=== PATIENT | female | born 1990 | race Caucasian/White ===

== ENCOUNTER 2016-07-02 20:57 | Emergency (ER) | payer OTHER ==
[2016-07-02 21:04] VITALS: BP 109/78; PULSE 97; TEMP 98.5; BMI 24.2
--- NOTE | 2016-07-02 21:20 | PDOC ---
History of Present Illness - General History Source: Patient Exam Limitations: No Limitations - History of Present Illness Initial Comments: 07/02/16 21:35 The patient is a 25 year old female () with no PMH presents to the ED today complaining of LLQ pain for 2 days. The patient reports she recently took a home test that was positive. She denies vaginal bleeding/ discharge. She is scheduled for appointment next week. However, she developed LLQ pain in the last 2 days. She states googling her symptoms and became concerned for ectopic . Patient denies nausea, vomiting, diarrhea. Denies frequency, urgency, dysuria, hematuria. She denies loss of appetite. Denies: fever, chills, coughing, SOB and chest pain. Allergies: NKDA <Anuradha Armenta - Last Filed: 07/02/16 21:35> - General History Source: Patient <Saul Harris - Last Filed: 07/02/16 23:32> - General Chief Complaint: Pain, Acute Stated Complaint: PREG PAIN Time Seen by Provider: 07/02/16 21:17 Past History <ConniebradAnuradha - Last Filed: 07/02/16 21:35> - Past Medical History Asthma: Yes - Psycho/Social/Smoking Cessation Hx Suicidal Ideation: No Smoking Status: No Smoking History: Never smoked Number of Cigarettes Smoked Daily: 0 <JimEusebia lazoan - Last Filed: 07/02/16 23:32> - Past Medical History Allergies/Adverse Reactions: Allergies Allergy/AdvReac Type Severity Reaction Status Date / Time No Known Allergies Allergy Verified 07/02/16 21:01 Home Medications: Ambulatory Orders NK [No Known Home Medication] 07/02/16 Review of Systems - Review of Systems Able to Perform ROS?: Yes Comments:: 07/02/16 21:35 CONSTITUTIONAL: Absent: fever, no chills, no fatigue EYES: Absent: visual changes ENT: Absent: ear pain, no sore throat CARDIOVASCULAR: Absent: chest pain, no palpitations RESPIRATORY: Absent: cough, no SOB GI: +LLQ pain. Absent: no nausea, no vomiting, no constipation, no diarrhea GENITOURINARY: Absent: dysuria, no frequency, no hematuria MUSKULOSKELETAL: Absent: back pain, no arthralgia, no myalgia SKIN: Absent: rash NEURO: Absent: headache <Anuradha Armenta - Last Filed: 07/02/16 21:35> *Physical Exam - Vital Signs Last Vital Signs Temp Pulse Resp BP Pulse Ox 98.5 F 97 H 18 109/78 99 07/02/16 21:02 07/02/16 21:02 07/02/16 21:02 07/02/16 21:02 07/02/16 21:02 - Physical Exam Comments: 07/02/16 21:36 GENERAL: Well-appearing, well-nourished. No apparent distress. HEENT: Normocephalic, atraumatic. PERRL, EOM intact. CARDIOVASCULAR: Normal S1, S2. Regular rate and rhythm. PULMONARY: Clear to auscultation bilaterally. ABDOMEN: Soft, non-distended, mild LLQ tenderness. EXTREMITIES: Normal ROM in all four extremities. No gross deformities. SKIN: Warm, dry. No rash NEUROLOGICAL: No focal neurological deficits. <Anuradha Armenta - Last Filed: 07/02/16 21:35> - Vital Signs Last Vital Signs Temp Pulse Resp BP Pulse Ox 98.5 F 97 H 18 109/78 99 07/02/16 21:02 07/02/16 21:02 07/02/16 21:02 07/02/16 21:02 07/02/16 21:02 <Saul Harris - Last Filed: 07/02/16 23:32> ED Treatment Course - LABORATORY CBC & Chemistry Diagram: 07/02/16 21:30 07/02/16 21:30 <Saul Harris - Last Filed: 07/02/16 23:32> Medical Decision Making - Medical Decision Making 07/02/16 23:32 Dr. Harris: The scribe's documentation has been prepared under my direction and personally reviewed by me in its entirery. I confirm that the note above accurately reflects all work, treatment, procedures, and medical decision making performed by me. <Saul Harris - Last Filed: 07/02/16 23:32> *DC/Admit/Observation/Transfer - Attestations Scribe Attestion: 07/02/16 21:36 Documentation prepared by Anuradha Armenta, acting as emergency medical technician basic for Saul Harris MD/DO. <GeovanyAnuradha - Last Filed: 07/02/16 21:35> - Discharge Dispostion Admit: No <Saul Harris - Last Filed: 07/02/16 23:32> Diagnosis at time of Disposition: 4 weeks gestation of - Discharge Dispostion Disposition: HOME Condition at time of disposition: Stable - Referrals Referrals: Jhonny Rodriguez MD [Staff Physician] - - Patient Instructions Printed Discharge Instructions: Managing Symptoms of
[2016-07-02 21:44] LABS: EOSINOPHIL 1.7 % (0-4.5); MCH 31.3 pg (25.7-33.7); MCHC 33.2 g/dl (32.0-36.0); MEAN CELL VOLUME 94.4 fl (80-96); MEAN PLT VOLUME 7.6 fl (7.5-11.1); NEUTROPHILS 62.1 % (42.8-82.8); PLATELET COUNT 359 K/MM3 (134-434); RDW 12.4 % (11.6-15.6); WHITE BLOOD COUNT 10.4 K/mm3 (4.0-10.0)
[2016-07-02 21:53] LABS: URINE APPEARANCE CLEAR; URINE BILIRUBIN NEGATIVE (NEGATIVE); URINE COLOR YELLOW; URINE GLUCOSE (UA) NEGATIVE (NEGATIVE); URINE KETONE NEGATIVE (NEGATIVE); URINE LEUK ESTERASE NEGATIVE (NEGATIVE); URINE NITRITE NEGATIVE (NEGATIVE); URINE PROTEIN NEGATIVE (NEGATIVE); URINE UROBILINOGEN NEGATIVE E.U./dl (0.2-1.0)
[2016-07-02 21:56] LABS: URINE BLOOD 1+ (NEGATIVE)
[2016-07-02 21:59] LABS: URINE BACTERIA RARE /hpf (NONE SEEN); URINE HYALINE CAST 3 /lpf; URINE MUCUS MODERATE; URINE RBC 6 /hpf (0-3); URINE WBC 1 /hpf (3-5)
[2016-07-02 22:09] LABS: ALBUMIN 3.7 g/dl (3.4-5.0); ANION GAP 6 (8-16); BILIRUBIN,TOTAL 0.7 mg/dL (0.2-1.0); CALCIUM 8.9 mg/dL (8.5-10.1); CO2 31 mmol/L (21-32); CREATININE 0.6 mg/dL (0.55-1.02); GLUCOSE,RANDOM 102 mg/dL (74-106); SGOT/AST 10 U/L (15-37); SGPT/ALT 19 U/L (12-78); TOT PROT 7.7 g/dl (6.4-8.2)
[2016-07-02 22:12] LABS: ALK PHOS 84 U/L (45-117)
== END 2016-07-02 23:46 | disposition home or self-care (01) ==
LOC: JER 20:57
DX: O26.891 Other specified pregnancy related conditions, first trimester (principal); R10.32 Left lower quadrant pain; Z3A.01 Less than 8 weeks gestation of pregnancy
CPT/HCPCS: 36415; 76817-TC; 80053; 81003; 81015; 84702; 85025; 86850; 86900; 86901; 99281-25

== ENCOUNTER 2016-08-16 22:43 | Emergency (ER) | payer OTHER ==
[2016-08-16 22:48] VITALS: BP 118/70; PULSE 122; BMI 25.8
[2016-08-17 01:21] VITALS: TEMP 99
[2016-08-17] MEDS ORDERED: SODIUM CHLORIDE 0.9% 1000 ML INFUS.BAG IV ONE (01:38)
[2016-08-17] MEDS ORDERED: METOCLOPRAMIDE HCL INJECTION 10 MG/2 ML VIAL IVPUSH ONE (01:39)
[2016-08-17] MEDS ORDERED: METOCLOPRAMIDE HCL INJECTION 10 MG/2 ML VIAL ONE (01:45)
[2016-08-17] MEDS ORDERED: ACETAMINOPHEN 325 MG TABLET (FP) PO ONE (01:56)
[2016-08-17] MEDS ORDERED: ACETAMINOPHEN 325 MG TABLET (FP) ONE (02:08)
--- NOTE | 2016-08-17 02:49 | PDOC ---
History of Present Illness - General Chief Complaint: Cold Symptoms Stated Complaint: COLD SYMPTOMS/12 WKS Time Seen by Provider: 08/17/16 00:47 - History of Present Illness Initial Comments: CHIEF COMPLAINT: cold symptoms HISTORY OF PRESENT ILLNESS: 26 yo 12 week F presents to ED with fever, head and body aches, and runny nose x 1 day. Patient states the symptoms came out of nowhere and she suddenly felt like her whole body was fatigued. She denies nausea, vomiting, diarrhea. No recent travel or sick contacts. PAST MEDICAL HISTORY: Denies past medical history FAMILY HISTORY: Denies SOCIAL HISTORY: Denies tobacco, alcohol, illicit drug use. SURGICAL HISTORY: Denies ALLERGIES: No known drug allergies REVIEW OF SYSTEMS General/Constitutional: Fever, malaise. Denies weakness, weight change. HEENT: Denies change in vision. Denies ear pain or discharge. Denies sore throat. Cardiovascular: Denies chest pain or shortness of breath. Respiratory: Cough. Denies wheezing, or hemoptysis. Gastrointestinal: Denies nausea, vomiting, diarrhea or constipation. Musculoskeletal: Body aches. Skin and breasts: Denies rash or easy bruising. Neurologic: Headache. Denies vertigo, loss of consciousness, or loss of sensation. PHYSICAL EXAM General Appearance: Well-appearing, appropriately dressed. No apparent distress. HEENT: Swollen turbinates, rhinorrhea. EOMI, PERRLA, normal ENT inspection, normal voice, TMs normal, pharynx normal. No conjunctival pallor. No photophobia, scleral icterus. Respiratory/Chest: Lungs CTAB. Cardiovascular: RRR. S1, S2. Gastrointestinal/Abdominal: Normal bowel sounds. Abdomen soft, non-distended. No tenderness or rebound tenderness. No organomegaly, pulsatile mass, guarding , hernia, hepatomegaly, splenomegaly. Musculoskeletal/Extremities: Normal inspection. FROM of all extremities, normal capillary refill. Pelvis Stable. No CVA tenderness. No tenderness to extremities, pedal edema, swelling, erythema or deformity. Integumentary: Appropriate color, dry, warm. No cyanosis, erythema, jaundice or rash Neurologic: beauty counselor II-XII intact. Fully oriented, alert. Appropriate mood/affect. Motor strength 5/5. No appreciable EOM palsy, facial droop or sensory deficit. Past History - Past Medical History Allergies/Adverse Reactions: Allergies Allergy/AdvReac Type Severity Reaction Status Date / Time No Known Allergies Allergy Verified 08/16/16 22:45 Home Medications: Ambulatory Orders Acetaminophen [Tylenol] 650 mg PO QID 08/16/16 Oseltamivir Phosphate [Tamiflu -] 75 mg PO BID #10 capsule 08/17/16 Asthma: Yes - Reproductive History (#): 5 Para: 3 Polycystic Ovaries: No Therapeutic (s) & number: Yes (1) Spontaneous : 0 - Psycho/Social/Smoking Cessation Hx Suicidal Ideation: No Smoking Status: No Smoking History: Never smoked Number of Cigarettes Smoked Daily: 0 *Physical Exam - Vital Signs Last Vital Signs Temp Pulse Resp BP Pulse Ox 99 F 122 H 18 118/70 98 08/17/16 01:21 08/16/16 22:47 08/16/16 22:47 08/16/16 22:47 08/16/16 22:47 ED Treatment Course - ADDITIONAL ORDERS Additional order review: 08/17/16 01:57 Influenza Types A,B Antigen (YOVANY) - Final Nasopharyngeal Swab - Final 08/17/16 01:57 Group A Strep Rapid Antigen - Final Throat - Medications Given in the ED: ED Medications Discontinued Medications Generic Name Dose Route Start Last Admin Trade Name Freq PRN Reason Stop Dose Admin Acetaminophen 650 mg 08/17/16 01:56 08/17/16 02:05 Tylenol - PO 08/17/16 01:57 650 mg ONCE ONE Administration Diphenhydramine HCl 25 mg 08/17/16 01:39 08/17/16 02:05 Benadryl Injection - IVPUSH 08/17/16 01:40 25 mg ONCE ONE Administration Metoclopramide HCl 10 mg 08/17/16 01:39 08/17/16 02:05 Reglan Injection - IVPUSH 08/17/16 01:40 10 mg ONCE ONE Administration Sodium Chloride 1,000 ml 08/17/16 01:38 08/17/16 02:05 Normal Saline - IV 08/17/16 01:39 1,000 ml ONCE ONE Administration Medical Decision Making - Medical Decision Making 26 yo 12 week F presents to ED with sudden onset cold symptoms and fever. -rapid flu and strep swabs Flu positive -Tamiflu po, script sent to pharm Advised patient to take medications as prescribed and follow up with PMD. Advised patient of signs and symptoms for return to ER; patient verbalized understanding and agrees to plan. *DC/Admit/Observation/Transfer Diagnosis at time of Disposition: Influenza A - Discharge Dispostion Disposition: HOME Condition at time of disposition: Stable Admit: No - Prescriptions Prescriptions: Oseltamivir Phosphate [Tamiflu -] 75 mg PO BID #10 capsule - Referrals Referrals: STAFF,NOT ON [Primary Care Provider] - - Patient Instructions Printed Discharge Instructions: DI for Influenza -- Adult Additional Instructions: Please take medication as prescribed. Continue taking Tylenol for fever or pain. If you experience persistent fever unrelieved by Tylenol, or continuous vomiting or diarrhea, shortness of breath, chest pain, vaginal bleeding, or any new or worsening symptoms, please return to the ER.
== END 2016-08-17 02:30 | disposition home or self-care (01) ==
LOC: JER 22:43
DX: O98.511 Other viral diseases complicating pregnancy, first trimester (principal); J09.X2 Influenza due to identified novel influenza A virus with other respiratory manifestations; Z3A.12 12 weeks gestation of pregnancy
CPT/HCPCS: 87070; 87430; 87804; 99281-25

== ENCOUNTER 2021-12-09 11:01 | Emergency (ER) | payer OTHER ==
[2021-12-09 11:22] VITALS: BP 123/93; PULSE 76; TEMP 98.7; BMI 23.6
[2021-12-09] MEDS ORDERED: METHOCARBAMOL 500 MG TABLET PO ONE (12:33)
[2021-12-09] MEDS ORDERED: LIDOCAINE 5% TOPICAL PATCH TP ONE (12:33)
[2021-12-09] MEDS ORDERED: METHOCARBAMOL 500 MG TABLET ONE (12:45)
[2021-12-09] MEDS ORDERED: LIDOCAINE 5% TOPICAL PATCH ONE (12:45)
== END 2021-12-09 13:31 | disposition home or self-care (01) ==
LOC: JERFT 11:01
DX: M62.830 Muscle spasm of back (principal); V49.9XXA Car occupant (driver) (passenger) injured in unspecified traffic accident, initial encounter
CPT/HCPCS: 72100-TC-FY; 99283-25